=== PATIENT | female | born 1960 | race Caucasian/White ===

== ENCOUNTER 2016-08-24 17:24 | Emergency (ER) | payer MEDICAID ==
[~2016-08-24] VITALS: Ht 152.4 cm; Wt 69.1 kg
[2016-08-24 17:26] VITALS: BP 133/90
== END 2016-08-24 19:09 | disposition home or self-care (01) ==
LOC: ED 19:03
DX: J02.8 Acute pharyngitis due to other specified organisms (principal); B97.89 Other viral agents as the cause of diseases classified elsewhere; I10 Essential (primary) hypertension
CPT/HCPCS: 71020; 99284